=== PATIENT | female | born 1965 | race Caucasian/White ===

== ENCOUNTER 2016-10-10 12:11 | Emergency (ER) | payer MEDICAID ==
[~2016-10-10] VITALS: Ht 162.6 cm; Wt 112.4 kg
[~2016-10-10 12:11] MED LIST: ALBU8.5H5 INH; ALPR-475 PO; AMLO10TA2 PO; CEFD300C37 PO; CETI10TA18 PO; FLUT1AER INH; GABA600T2 PO; HYDR25TA11 PO; LEVO150T5 PO; METH750T2 PO; MONT10TA9 PO; NAPR550T3 PO; PRED10TA PO; RISP1TAB3 PO; SERT100T5 PO
[2016-10-10] MEDS ORDERED: ALBUTEROL/IPRATROPIUM 2.5MG/0.5MG, 3 ML NPPB ONE (12:30)
[2016-10-10] MEDS ORDERED: ALBUTEROL/IPRATROPIUM 2.5MG/0.5MG, 3 ML ONE (12:48)
[2016-10-10] MEDS ORDERED: METOCLOPRAMIDE 5 MG/ML, 2ML IVPush ONE (15:00)
[2016-10-10] MEDS ORDERED: DIAZEPAM 5 MG/ML, 2ML IVPush ONE (15:00)
[2016-10-10] MEDS ORDERED: SODIUM CHLORIDE 0.9% 1,000ML IVBOLUS ONE (15:00)
[2016-10-10] MEDS ORDERED: DIPHENHYDRAMINE 50 MG/ML, 1ML IVPush ONE (15:00)
[2016-10-10] MEDS ORDERED: SODIUM CHLORIDE FLUSH 10ML SYR IVF ONE (15:00)
[2016-10-10 15:14] LABS: BLOOD UREA NITROGEN 6 mg/dL (7-18)
[2016-10-10 15:24] VITALS: BP 133/76
== END 2016-10-10 16:40 | disposition home or self-care (01) ==
LOC: ED 14:35
DX: J44.1 Chronic obstructive pulmonary disease with (acute) exacerbation (principal); R51 Headache; I10 Essential (primary) hypertension
CPT/HCPCS: 36415; 70450; 71020; 80048; 82040; 85025; 94640; 99285; J7512; J7620

== ENCOUNTER 2016-10-30 09:36 | Emergency (ER) | payer MEDICAID ==
[~2016-10-30] VITALS: Ht 162.6 cm; Wt 113.0 kg
[~2016-10-30 09:36] MED LIST changes: -NAPR550T3 PO; +NAPR550T30 PO
[2016-10-30] MEDS ORDERED: ONDANSETRON 2MG/ML, 2ML ONE (09:58)
[2016-10-30] MEDS ORDERED: ONDANSETRON 2MG/ML, 2ML IVPush ONE (10:00)
[2016-10-30] MEDS ORDERED: SODIUM CHLORIDE 0.9% 1,000ML IVBOLUS ONE (10:00)
[2016-10-30] MEDS ORDERED: SODIUM CHLORIDE FLUSH 10ML SYR IVF ONE (10:00)
[2016-10-30] MEDS ORDERED: FLUT1AER INH (10:04)
[2016-10-30 10:28] LABS: ASPARTATE AMINO TRANSFERASE 24 U/L (15-37); BLOOD UREA NITROGEN 5 mg/dL (7-18)
[2016-10-30 11:48] VITALS: BP 116/66
== END 2016-10-30 11:50 | disposition home or self-care (01) ==
LOC: ED 10:16
DX: B34.9 Viral infection, unspecified (principal); E03.9 Hypothyroidism, unspecified; J44.9 Chronic obstructive pulmonary disease, unspecified; I10 Essential (primary) hypertension; F17.200 Nicotine dependence, unspecified, uncomplicated
CPT/HCPCS: 36415; 74022; 80053; 83690; 85025; 93005; 96361; 96374; 99285; J2405; J7030

== ENCOUNTER → 2018-05-08 | Outpatient (CLI) | payer MEDICAID ==
[~2018-05-08] MED LIST changes: -AMLO10TA2 PO; +AMLO10TA6 PO; +NAPR-850 PO; -NAPR550T30 PO
== END | disposition home or self-care (01) ==
LOC: CFH 08:09
PROVIDERS: ATTEND Registered Nurse
DX: K76.0 Fatty (change of) liver, not elsewhere classified (principal); J98.11 Atelectasis; I25.10 Atherosclerotic heart disease of native coronary artery without angina pectoris; J44.9 Chronic obstructive pulmonary disease, unspecified; Z90.49 Acquired absence of other specified parts of digestive tract
CPT/HCPCS: 71250